=== PATIENT | male | born 1985 | race Caucasian/White ===

== ENCOUNTER 2018-01-30 12:47 | Emergency (ER) | payer BC ==
[2018-01-30] MEDS ORDERED: Aspirin 81 MG Tab.Chew PO ONE (13:40)
--- NOTE | 2018-01-30 13:40 | EDM.PDOC ---
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 States the pain is bad enough because it made him feel weak and numb and tingly suggesting any some hyperventilation syndrome that he had to stop the truck and pullover. His coworker had to take over driving the truck. He states the precordial chest discomfort stayed for about 30-40 minutes and is now down to 1 out of 10. He didn't have any associated burping or belching or trouble swallowing. He denies cough or sputum production and no recent chest wall trauma. Is been drinking more alcohol as of late which may or may not be continuing to esophagitis or reflux during the night. He has no known heartburn problems. Has no known heart disease. He is on nicotine gum and he was chewing one of these tablets when he developed the pain. He spit it out. He is trying to quit chewing. Which she's been doing for about 10 years. At present his pain is down to 1 out of 10 and he looks to be in no distress. Of note he reports he has not yet 8 today. Is asking for something to drink. We'll provide him with some Gatorade ECG done by triage nurse shows sinus rhythm at 90/m with occasional PJC. There is initial poor R-wave progression but one may give some thought to an old anteroseptal myocardial infarction of your patient has no history of this. The remainder the ECG is normal. Onset: Today Onset Date: 01/30/18 Onset Time: 11:40 Duration: Minutes: Location: Reports: Chest Quality: Reports: Ache, Pressure, Other Severity: Moderate (Mildly squeezing. Pain was up to 45 out of 10.) Improves with: Reports: None Worsens with: Reports: None, Other Context: Denies: Activity, Exercise (It is easing up on its own.), Lifting, Sick Contact, Trauma, Other Associated Symptoms: Reports: Chest Pain. Denies: Confusion, Cough, cough w sputum (See history of present illness), Diaphoresis, Fever/Chills, Headaches, Loss of Appetite, Malaise, Nausea/Vomiting, Rash, Seizure, Shortness of Breath, Syncope, Weakness Treatments SCRAP HAND[employer]ER: Reports: Other (see below) (None.) Left Chest Pain Score (Numeric/FACES): 2 - Related Data Allergies Allergy/AdvReac Type Severity Reaction Status Date / Time erythromycin base Allergy Cannot Verified 01/30/18 12:55 Remember Home Meds: Home Meds Nicotine Polacrilex [Nicotine Lozenge] 2 mg PO ASDIRECTED 01/30/18 [History] Social & Family History - Tobacco Use Smoking Status *Q: Former Smoker Tobacco Use Within Last Twelve Months: Other (See Below) (Currently trying to quit chewing tobacco. Been treating for about 10 years. He is currently on a nicotine patch.) Years of Tobacco use: 8 Packs/Tins Daily: 0.2 Used Tobacco, but Quit: Yes Month/Year Tobacco Last Used: 2 MONTHS AGO - Caffeine Use Caffeine Use: Reports: Coffee, Soda - Recreational Drug Use Recreational Drug Use: No ED ROS GENERAL - Review of Systems Review Of Systems: See Below Constitutional: Reports: No Symptoms HEENT: Reports: No Symptoms Respiratory: Reports: No Symptoms Cardiovascular: Reports: Chest Pain Endocrine: Reports: No Symptoms GI/Abdominal: Reports: No Symptoms : Reports: No Symptoms Musculoskeletal: Reports: No Symptoms Skin: Reports: No Symptoms Neurological: Reports: No Symptoms Psychiatric: Reports: No Symptoms Hematologic/Lymphatic: Reports: No Symptoms Immunologic: Reports: No Symptoms ED EXAM, GENERAL - Physical Exam Exam: See Below Exam Limited By: No Limitations General Appearance: Alert, WD/WN, No Apparent Distress Throat/Mouth: Normal Inspection, Normal Lips, Normal Oropharynx Head: Atraumatic, Normocephalic Neck: Normal Inspection, Supple, Non-Tender, Full Range of Motion. No: Carotid Bruit, Lymphadenopathy (L), Lymphadenopathy (R) Respiratory/Chest: No Respiratory Distress, Lungs Clear, No Accessory Muscle Use , Respiratory Distress, Other (Cannot elicit any chest wall pain on firm palpation of anterior lateral ribs.) Cardiovascular: Normal Peripheral Pulses, Regular Rate, Rhythm, No Edema, No Gallop, No Murmur Peripheral Pulses: 3+: Posterior Tibial (L), Posterior Tibial (R), Dorsalis Pedis (L), Dorsalis Pedis (R) GI/Abdominal: Normal Bowel Sounds, Soft, Non-Tender, No Organomegaly, No Abnormal Bruit, No Mass, Pelvis Stable Back Exam: Normal Inspection, Full Range of Motion. No: CVA Tenderness (L), CVA Tenderness (R) Extremities: Normal Inspection, Normal Range of Motion, Non-Tender, No Pedal Edema Neurological: Alert, Oriented, CN II-XII Intact, Normal Cognition, Normal Gait Psychiatric: Normal Affect, Normal Mood Skin Exam: Warm, Dry, Intact, Normal Color, No Rash Course - Vital Signs Last Recorded V/S: Last Vital Signs Temp 36.9 C 01/30/18 12:56 Pulse 101 H 01/30/18 12:56 Resp 16 01/30/18 12:56 BP 154/101 H 01/30/18 12:56 Pulse Ox 100 01/30/18 12:56 - Orders/Labs/Meds Orders: Active Orders 24 hr Category Date Time Status EKG Documentation Completion [RC] STAT Care 01/30/18 13:39 Active Chest 1V Frontal [CR] Stat Exams 01/30/18 13:39 Taken Labs: Laboratory Tests 01/30/18 01/30/18 01/30/18 Range/Units 13:00 13:00 13:00 WBC 9.78 H (4.23-9.07) K/mm3 RBC 5.29 (4.63-6.08) M/mm3 Hgb 16.0 (13.7-17.5) gm/L Hct 46.5 (40.1-51.0) % MCV 87.9 (79.0-92.2) fl MCH 30.2 (25.7-32.2) pg MCHC 34.4 (32.2-35.5) g/dl RDW Std Deviation 39.8 (35.1-43.9) fL Plt Count 263 (163-337) K/mm3 MPV 10.2 (9.4-12.3) fl Neutrophils % (Manual) 71 H (40-60) % Band Neutrophils % 0 (0-10) % Lymphocytes % (Manual) 16 L (20-40) % Atypical Lymphs % 0 % Monocytes % (Manual) 9 (2-10) % Eosinophils % (Manual) 3 (0.8-7.0) % Basophils % (Manual) 1 (0.2-1.2) Platelet Estimate Adequate Plt Morphology Comment Normal RBC Morph Comment Normal D-Dimer, Quantitative < 0.19 L (0.19-0.50) mg/L Sodium 139 (136-145) mEq/L Potassium 3.4 L (3.5-5.1) mEq/L Chloride 99 (98-107) mEq/L Carbon Dioxide 25 (21-32) mEq/L Anion Gap 18.4 H (5-15) BUN 13 (7-18) mg/dL Creatinine 1.3 (0.7-1.3) mg/dL Est Cr Clr Drug Dosing 91.34 mL/min Estimated GFR (MDRD) > 60 (>60) mL/min BUN/Creatinine Ratio 10.0 L (14-18) Glucose 154 H (74-106) mg/dL Calcium 9.7 (8.5-10.1) mg/dL Total Bilirubin 0.6 (0.2-1.0) mg/dL AST 19 (15-37) U/L ALT 27 (16-63) U/L Alkaline Phosphatase 80 (46-116) U/L CK-MB (CK-2) 0.6 (0-3.6) ng/ml Troponin I < 0.017 (0.00-0.056) ng/mL C-Reactive Protein < 0.2 (<1.0) mg/dL Total Protein 8.3 H (6.4-8.2) g/dl Albumin 4.8 (3.4-5.0) g/dl Globulin 3.5 gm/dL Albumin/Globulin Ratio 1.4 (1-2) Lipase 91 (73-393) U/L Meds: Medications Discontinued Medications Generic Name Dose Route Start Last Admin Trade Name Freq PRN Reason Stop Dose Admin Aspirin 324 mg 01/30/18 13:40 01/30/18 13:45 Aspirin PO 01/30/18 13:41 324 mg ONETIME ONE Administration Famotidine 20 mg 01/31/18 15:12 Pepcid PO 01/31/18 15:13 ONETIME ONE Famotidine 20 mg 01/30/18 15:12 01/30/18 15:35 Pepcid PO 01/30/18 15:13 20 mg ONETIME ONE Administration - Radiology Interpretation Free Text/Narrative:: 32-year-old male presents the ED due to development of 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 Said the chest discomfort last about 40 minutes but associate with weakness feeling of lightheadedness numbness and tingling in his hands suggesting a mild hyperventilation syndrome. This postmenopausal over and allow his coworker to drive the vehicle. States the discomfort lasted a good 40 minutes. It is eased up substantially compared to what it was when it started and is currently rated as a 1 out of 10. His ECG is revealing normal rhythm with no sign of ischemia. I believe his current pain is likely GI in origin i.e. esophageal spasm. Will give him 324 mg aspirin chewed . Routine labs to be performed and 1 view chest x-ray to be done - Re-Assessments/Exams Free Text/Narrative Re-Assessment/Exam: 01/30/18 14:18: Chest x-ray done portably is completely within normal limits showing normal cardiac silhouette and normal lung vasquez. 01/30/18 15:08 Labs are back. White count is 9.78 with 71% neutrophils no bands reported hemoglobin is 16.0 with hematocrit of 46.5. D-dimer is less than 0.19. Platelets were normal at 263,000. Sodium 139 with a potassium slightly low at 3.4. Chloride is 99 with a bicarbonate 25. Anion gap is 18.4 indicating that he has mildly volume depleted. BUNs 13 with a creatinine of 1.3. Glucose is 154. Calcium 9.7. Bilirubin 0.6. AST is 19 with andALT of 27. Troponin I is less than 0.017. C-reactive protein is less than 0.2. CK-MB fraction 0.6. Lipase is 91. 01/30/18 15:13 patient has no further chest discomfort. He will therefore be discharged to home. He will be given a note to excuse him from the workplace today and tomorrow. Advised to ease up on his alcohol use and I suspect he has an esophagitis likely due to reflux that occurs during the night with sleeping. Will give him Pepcid 20 mg now advised Pepcid or Zantac at nighttime and Prilosec 20 mg once daily for the next 14 days. 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 Did well at work. Pain was bad enough that it made to break out into sweats and developed some numbness and tingling i.e. mild hyperventilation syndrome. It lasted about 40 minutes. At the time you were seen in the ED the pain had eased up substantially and was down to a 1 or 2 out of 10. ECG done showed no signs of heart attack or ischemia. Chest x-ray was normal. Lab tests also proved to be negative for any heart related illness and no blood clots in the lung. Therefore I think the cause of your pain was esophagitis with esophageal spasm. This likely is related to increased alcohol use as of late. Reflux occurred during the night while he was sleeping with irritation or burning of the inside of the food pipe which makes irritable and prone to spasm. The pain can mimic a heart attack to 18. I would suggest cutting back on alcohol use for a while. Suggest using Prilosec 20 mg once daily for the next 14 days to allow the food pipe to heal. He received a dose of Pepcid 20 mg in the ED and I would suggest using either Pepcid or Zantac twice daily for the next 4 days until the Prilosec is working to reduce the acid concentration your stomach allow the food pipe to heal. May eat and drink per normal although be forewarned that acidic substances such as tomato soup [place] diffuse etc. may irritate the food pipe once again. - My Orders Last 24 Hours: My Active Orders 01/30/18 13:39 EKG Documentation Completion [RC] STAT Chest 1V Frontal [CR] Stat - Assessment/Plan Last 24 Hours: My Active Orders 01/30/18 13:39 EKG Documentation Completion [RC] STAT Chest 1V Frontal [CR] Stat
[2018-01-30] MEDS ORDERED: Famotidine 20 MG Tab PO ONE (15:12)
--- NOTE | 2018-01-31 14:55 | CR ---
Chest: Portable view of the chest was obtained. Comparison: No prior chest x-ray. Heart size and mediastinum are normal. Lungs are clear. Bony structures are grossly intact. Impression: 1. Nothing acute is identified on portable chest x-ray. Diagnostic code #1
[2018-01-31] MEDS ORDERED: Famotidine 20 MG Tab PO ONE (15:12)
== END 2018-01-30 15:26 | disposition home or self-care (01) ==
LOC: JD.ED 12:47
DX: K22.4 Dyskinesia of esophagus (principal); Z88.1 Allergy status to other antibiotic agents; Z87.891 Personal history of nicotine dependence
CPT/HCPCS: 36415; 71045; 80053; 82553; 83690; 84484; 85025; 85379; 86140; 93005; 99285; A9270; 99284

== ENCOUNTER 2023-01-28 14:29 | Emergency (ER) | payer BC | END 2023-01-28 16:33 | disposition home or self-care (01) | LOC: JD.ED 14:29 | DX: M25.561 Pain in right knee (principal); F41.1 Generalized anxiety disorder; Z88.1 Allergy status to other antibiotic agents; Z86.16 Personal history of COVID-19 | CPT/HCPCS: 36415; 80053; 85025; 85379; 85610; 85730; 93971-26-RT; 93971-RT; 99284 ==

== ENCOUNTER 2023-09-23 14:49 | Emergency (ER) | payer BC ==
[2023-09-23] MEDS ORDERED: Diphtheria,Pertussis(Acell),Tetanus Vaccine 0.5 ML Syringe IM ONE (16:03)
== END 2023-09-23 16:34 | disposition home or self-care (01) ==
LOC: JD.ED 14:49
DX: S60.415A Abrasion of left ring finger, initial encounter (principal); Z23 Encounter for immunization; Z88.8 Allergy status to other drugs, medicaments and biological substances; Z86.16 Personal history of COVID-19; Z79.899 Other long term (current) drug therapy; W33.01XA Accidental discharge of shotgun, initial encounter
CPT/HCPCS: 99283